=== PATIENT | male | born 1945 | race Caucasian/White ===

== ENCOUNTER 2020-07-01 11:59 | Emergency (ER) | payer MEDICARE ==
[2020-07-01 12:07] VITALS: BP 162/85; PULSE 77; RESP 20; TEMP 98.5
[2020-07-01] MEDS ORDERED: IBUPROFEN 600 MG TAB PO STA (12:43)
--- NOTE | 2020-07-01 13:41 | ED ---
ENT HPI - General Chief complaint: ENT Stated complaint: Nose bleed Time Seen by Provider: 07/01/20 12:35 Source: patient Mode of arrival: ambulatory Limitations: no limitations - History of Present Illness Initial comments: Patient is a 74-year-old male presenting to the emergency department for reexamination of a nosebleed. Patient states he was seen at [facility] 1 hour ago for a nosebleed that would not stop. He is currently on Plavix and Eliquis Wells a baby aspirin for many stents and history of DVT. Patient states they did packing at the hospital, there to him on antibiotics and was told to follow up with ENT on Friday. He was also told that if the bleeding continues to, here as we would have the ENT on standby. He states he feels like it is leaking to the back of his throat and he is having a lot of pressure on the left side of his nostril where it is packed. He denies any fevers or chills, no chest pain or shortness of breath. He has no further complaints at this time. - Related Data Allergies Allergy/AdvReac Type Severity Reaction Status Date / Time No Known Allergies Allergy Verified 07/01/20 12:06 Review of Systems ROS Statement: Those systems with pertinent positive or pertinent negative responses have been documented in the HPI. ROS Other: All systems not noted in ROS Statement are negative. Past Medical History Past Medical History: Diabetes Mellitus, Hypertension History of Any Multi-Drug Resistant Organisms: None Reported Additional Past Surgical History / Comment(s): Cardiac stent Past Psychological History: No Psychological Hx Reported Smoking Status: Never smoker Past Alcohol Use History: Daily Past Drug Use History: None Reported General Exam - General Exam Comments Initial Comments: GENERAL: Patient is well-developed and well-nourished. Patient is nontoxic and in no acute distress. HEAD: Atraumatic, normocephalic. EYES: Pupils equal round and reactive to light, extraocular movements intact, sclera anicteric, conjunctiva are normal. Eyelids were unremarkable. ENT: TMs normal, nares patent, oropharynx clear without exudates. Moist mucous m embranes. Nasal packing present in the left nostril, there is no active bleeding. No active bleeding posterior oropharynx. NECK: Normal range of motion, supple without lymphadenopathy or JVD. LUNGS: Unlabored respirations. Breath sounds clear to auscultation bilaterally and equal. No wheezes rales or rhonchi. HEART: Regular rate and rhythm without murmurs, rubs or gallops. ABDOMEN: Soft, nontender, normoactive bowel sounds. No guarding, no rebound. No masses appreciated. : Deferred MUSCULOSKELETAL: Normal extremities with adequate strength and normal range of motion, no pitting or edema. No clubbing or cyanosis. NEUROLOGICAL: Patient is alert and oriented x 3. Motor and sensory are also intact. Cranial nerves II through XII grossly intact. Symmetrical smile. Normal speech, normal gait. PSYCH: Normal mood, normal affect. SKIN: Warm, Dry, normal turgor, no rashes or lesions noted. Limitations: no limitations Course Vital Signs 07/01/20 12:04 Temperature 98.5 F Pulse Rate 77 Respiratory 20 Rate Blood Pressure 162/85 O2 Sat by Pulse 99 Oximetry Medical Decision Making - Medical Decision Making Patient is a 74-year-old male here for a nosebleed recheck. He is on blood thinners. He was at [facility] 1 hour ago, has a packing in the left nostril. We did increase the pressure in the packing, he was reassessed about 40 minutes later, no active bleeding. The give him some Motrin for the pressure. Patient is stable for discharge. He can follow-up with ENT on Friday as already discussed. He does have a prescription for an antibiotic which is going to get filled now. He will hold his blood thinners until Friday. He is in agreement this plan of care. Case discussed with Dr. Lara. Disposition Clinical Impression: Epistaxis Disposition: HOME SELF-CARE Condition: Stable Instructions (If sedation given, give patient instructions): Nosebleed (ED) Additional Instructions: Please return to the Emergency Department if symptoms worsen or any other concerns. Keep packing in place until follow-up with ENT. Take your antibiotics as prescribed. Is patient prescribed a controlled substance at d/c from ED?: No Referrals: Valentina Fajardo MD [Primary Care Provider] - 1-2 days Time of Disposition: 13:41
== END 2020-07-01 14:00 | disposition home or self-care (01) ==
LOC: EC 11:59
DX: R04.0 Epistaxis (principal); E11.9 Type 2 diabetes mellitus without complications; I10 Essential (primary) hypertension
CPT/HCPCS: 99283

== ENCOUNTER → 2024-10-16 | Outpatient (CLI) | payer MEDICARE ==
--- NOTE | 2024-10-17 11:04 | MR ---
EXAMINATION TYPE: MR Prostate wo/w con DATE OF EXAM: 10/16/2024 10:43 AM COMPARISON: None. CLINICAL INDICATION: Male, 79 years old with history of C61 PROSTATE CANCER; Elevated PSA, Prostate C ancer TECHNIQUE: Multi-planar, multi-sequence imaging of the pelvis is performed prior to and following the uncomplicated administration of bolus intravenous gadolinium. IV Contrast: 13 mL Gadobutrol Interpretive Criteria: PI-RADS v2.1 SERUM PSA: 09/2023=1.52 03/2024=2.0 SURGICAL PATHOLOGY: Positive biopsy 08/07/2023 FINDINGS: Prostatic dimensions: 4.4 x 5.1 x 2.5 cm. "Bullet" Volume:36.72 (PSA density=0.05 ng/mL/mL) Suspected postsurgical changes to the prostate gland central gland.. CENTRAL GLAND (Central and Transition Zones/CZ+TZ): Multiple bilateral, heterogenous appearing hypertrophic stromal nodules, without suspicious lesion. M edian lobe hypertrophy with protrusion into the base of the bladder. (PI-RADS 2) PERIPHERAL ZONE (PZ): Bilateral linear, indistinct wedgelike areas of low ADC, and low T2 signal, No evidence of masslike a bnormality, or localized perfusional hypervascularity, to further suggest a focus of clinically signi ficant prostate cancer. (PI-RADS 2) SEMINAL VESICLES (SV): Symmetric and unremarkable. PERIPROSTATIC TISSUES: Unremarkable. LYMPH NODES: No enlarged pelvic lymph node. REMAINING PELVIS: Bladder wall is within normal limits given distention. No abnormal free or organized intrapelvic fluid collection. No pathologic bowel dilation or mural thickening. No hernia visualized OSSEOUS STRUCTURES: No suspicious osseous abnormality. IMPRESSION: 1. No specific features for high-risk prostate cancer. Maximum PI-RADS score: 2. 2. Postsurgical changes with Mild BPH, estimated gland volume 36.72 (PSA density=0.05 ng/mL/mL) 3. No suspicious osseous lesion. No lymphadenopathy. No evidence of prostate adenocarcinoma involving the periprostatic tissues. [facility], , 10/17/2024 11:01 AM
== END | disposition home or self-care (01) ==
LOC: RADMRIMAIN 09:17
PROVIDERS: ATTEND Urology
DX: C61 Malignant neoplasm of prostate (principal); N40.0 Benign prostatic hyperplasia without lower urinary tract symptoms
CPT/HCPCS: 72197; A9585